=== PATIENT | female | born 1940 | race Asian ===

== ENCOUNTER 2016-12-03 12:29 | Emergency (ER) | payer OTHER, MEDICARE ==
[2016-12-03 12:43] VITALS: BP 141/64; PULSE 72; TEMP 97.6; BMI 28.3
[2016-12-03] MEDS ORDERED: IBUPROFEN 400 MG TABLET (FP) PO ONE ×2 (13:24→13:26)
--- NOTE | 2016-12-03 13:25 | PDOC ---
History of Present Illness - General Chief Complaint: Injury Stated Complaint: FALL Time Seen by Provider: 12/03/16 12:58 History Source: Patient, Family Exam Limitations: No Limitations - History of Present Illness Initial Comments: 12/03/16 13:25 While at [employer] office slid off rolling stool and struck the back of head on floor. There was no LOC, no drainage from nose or ears, but the patient is now complaining of tenderness and swelling to occiput and neck strain. Daughter who is with patient states mental status is been within normal limits, and it has no other injury. Occurred: reports: just prior to arrival, this morning Severity: reports: mild, moderate Pain Location: reports: head Modifying Factors: improves with: cold therapy Loss of Consciousness: no loss of consciousness Associated Symptoms (Fall): headache, neck pain Past History - Travel Traveled outside of the country in the last 30 days: No Close contact w/someone who was outside of country & ill: No - Past Medical History Allergies/Adverse Reactions: Allergies Allergy/AdvReac Type Severity Reaction Status Date / Time No Known Allergies Allergy Verified 12/03/16 12:42 Home Medications: Ambulatory Orders Atorvastatin Ca [Lipitor] 40 mg PO HS 12/03/16 Ibuprofen [Motrin -] 400 mg PO QID PRN #28 tablet 12/03/16 Ibuprofen [Motrin -] 600 mg PO QID 12/03/16 Asthma: Yes Diabetes: Yes HTN: Yes Other medical history: CARATACS - Surgical History Abdominal Surgery: Yes (ETOPIC, INGUINAL HERNIA) Cholecystectomy: Yes - Psycho/Social/Smoking Cessation Hx Suicidal Ideation: No Smoking History: Former smoker Have you smoked in the past 12 months: No Information on smoking cessation initiated: No Hx Alcohol Use: No Drug/Substance Use Hx: No Substance Use Type: None Trauma Specific PMHX - Complaint Specific PMHX Back Injury: No Neck Injury: Yes Review of Systems - Review of Systems Able to Perform ROS?: Yes Is the patient limited Greek proficient: Yes Constitutional: Yes: Symptoms Reported, See HPI Respiratory: No: Symptoms reported : No: Symptoms Reported Musculoskeletal: Yes: Symptoms Reported Neurological: Yes: Symptoms reported, See HPI, Headache. No: Numbness, Paresthesia All Other Systems: Reviewed and Negative *Physical Exam - Vital Signs Last Vital Signs Temp Pulse Resp BP Pulse Ox 97.6 F 72 18 141/64 98 12/03/16 12:40 12/03/16 12:40 12/03/16 12:40 12/03/16 12:40 12/03/16 12:40 - Physical Exam General Appearance: Yes: Nourished, Appropriately Dressed, Apparent Distress, Mild Distress, Moderate Distress HEENT: positive: CARLO, TMs Normal (no hemotympanum, no drainage from nose or ears). negative: Sinus Tenderness Neck: positive: Tender, Supple, Other (tender sternocleidomastoid muscles with reproduce tenderness at point of mastoid insertions. Has superficial contusion without crepitus or step-offs occiput) Respiratory/Chest: positive: Lungs Clear, Normal Breath Sounds Gastrointestinal/Abdominal: positive: Soft Extremity: positive: Normal Capillary Refill, Normal Inspection, Normal Range of Motion Integumentary: positive: Normal Color, Dry, Warm Neurologic: positive: rn patient care II-XII NML intact, Fully Oriented, Alert, Normal Mood/ Affect, Normal Response, Motor Strength 5/5 Progress Note - Progress Note Progress Note: CAT scan negative for fracture or bleed, no acute pathology. Discussed findings with Dr. juan. Encouraged to continue ice packs to contusion, ibuprofen for anti-inflammatory and pain relief, and provided one tablet of Valium 5 mg for antispasmodic purposes. Will follow-up with PMD Tuesday as needed *DC/Admit/Observation/Transfer Diagnosis at time of Disposition: Superficial injury of head Qualifiers: Encounter type: initial encounter Qualified Code(s): S00.90XA - Unspecified superficial injury of unspecified part of head, initial encounter - Discharge Dispostion Disposition: HOME Condition at time of disposition: Stable Admit: No - Patient Instructions Printed Discharge Instructions: DI for Closed Head Injury Additional Instructions: Rest, avoid strenuous activity or exercise for the next 24-48 hours May use ice on contusions as needed. hot soaks to neck spasms May use Tylenol or Motrin for pain relief may take 1/2valium once home and comfortable, for spasm- will make dizzy and sleepy. May take the other 1/2 = 2.5mg Valium in 8 hours if not resolved. Watch and seek evaluation for changes in behavior including crankiness, inconsolability, quietness/ sleepiness that is inappropriate, tiredness that is inappropriate, watch for worsening and changes of behavior. Seek immediate evaluation/return to emergency department for vomiting, mental status changes, pain that's out of proportion , bloody drainage from ears or nose. Followup with private physician as needed in one to 2 days for reevaluation
[2016-12-03] MEDS ORDERED: diazePAM 5 MG TABLET PO ONE (14:28)
[2016-12-03] MEDS ORDERED: diazePAM 5 MG TABLET ONE (14:32)
== END 2016-12-03 14:46 | disposition home or self-care (01) ==
LOC: JERFT 12:29
DX: S09.90XA Unspecified injury of head, initial encounter (principal); I10 Essential (primary) hypertension; J45.909 Unspecified asthma, uncomplicated; E11.9 Type 2 diabetes mellitus without complications; W07.XXXA Fall from chair, initial encounter; Y93.89 Activity, other specified; Y92.531 Health care provider office as the place of occurrence of the external cause; Z87.891 Personal history of nicotine dependence
CPT/HCPCS: 70450-TC; 99281-25

== ENCOUNTER 2016-12-15 06:28 | Day surgery (SDC) | payer OTHER, MEDICARE ==
[2016-12-14 15:18] VITALS: BMI 31.2
[~2016-12-15 06:28] MED LIST: CHONDROITIN SU A/HYALUR SOD 1 KIT IO ONE; LIDOCAINE HCL 1% PRESERVATIVE FREE - 30ML VIAL IO ONE; LIDOCAINE HCL 2% JELLY (5 ML/TUBE) TP ONE
[2016-12-15] MEDS ORDERED: TROPICAMIDE 1% OPHTH SOLN 15 ML BOTTLE ONE (06:49)
[2016-12-15] MEDS ORDERED: FLURBIPROFEN 0.03% OPHTH SOLN 2.5 ML BOTTLE ONE (06:49)
[2016-12-15] MEDS ORDERED: CYCLOPENTOLATE HCL 1% OPHTH SOLN 2 ML BOTTLE ONE (06:49)
[2016-12-15] MEDS ORDERED: CIPROFLOXACIN 0.3% EYE DROPS 5 ML BOTTLE ONE (06:49)
[2016-12-15] MEDS ORDERED: PHENYLEPHRINE 2.5% OPHTH SOLN 15 ML BOTTLE ONE (06:50)
[2016-12-15] MEDS: CIPROFLOXACIN HCL 0.3% OPHTH 2.5ML BOTTLE OP SCH ×3 (06:55→07:05)
[2016-12-15] MEDS: PHENYLEPHRINE 2.5% OPHTH SOLN 15 ML BOTTLE OP SCH ×3 (06:55→07:05)
[2016-12-15] MEDS: TROPICAMIDE 1% OPHTH SOLN 15 ML BOTTLE OP SCH ×3 (06:55→07:05)
[2016-12-15] MEDS: CYCLOPENTOLATE HCL 1% OPHTH SOLN 2 ML BOTTLE OP SCH ×3 (06:55→07:05)
[2016-12-15] MEDS: FLURBIPROFEN 0.03% OPHTH SOLN 2.5 ML BOTTLE OP SCH ×3 (06:55→07:05)
[2016-12-15 07:14] VITALS: TEMP 97.6
[2016-12-15] MEDS ORDERED: EPINEPHrine/PF 1 MG/1 ML (1:1,000) AMPULE ONE (07:21)
[2016-12-15] MEDS ORDERED: POVIDONE-IODINE 5% OPHTHALMIC PREP 30 ML SOLUTION ONE (07:22)
[2016-12-15] MEDS ORDERED: LIDOCAINE HCL 2% JELLY (5 ML/TUBE) ONE (07:22)
[2016-12-15] MEDS ORDERED: WATER FOR INJ,STERILE 10 ML ONE (07:22)
[2016-12-15] MEDS ORDERED: VANCOMYCIN 500 MG VIAL (RESTRICTED TO ID ONLY) ONE (07:22)
[2016-12-15] MEDS ORDERED: LIDOCAINE HCL 2% JELLY (5 ML/TUBE) TP ONE (07:45)
[2016-12-15] MEDS ORDERED: ACETAMINOPHEN 325 MG TABLET (FP) PO PRN (07:49)
[2016-12-15] MEDS ORDERED: LIDOCAINE HCL 1% PRESERVATIVE FREE - 30ML VIAL IO ONE (08:14)
[2016-12-15] MEDS ORDERED: CHONDROITIN SU A/HYALUR SOD 1 KIT IO ONE (08:15)
--- NOTE | 2016-12-15 09:05 | SPEC ---
DATE OF OPERATION: DATE OF DICTATION: 12/15/2016 PREOPERATIVE DIAGNOSIS: Cataract, left eye. POSTOPERATIVE DIAGNOSIS: Cataract, left eye. OPERATION: Phacoemulsification with posterior chamber intraocular lens implantation, left eye. Lens used [id number], 19.5-diopter power, Serial No. [id number]. SURGEON: Beatrice Barrios MD ANESTHESIA: Topical MAC. COMPLICATIONS: None. PROCEDURE: The patient was brought to the operating room and correctly identified along with the operative site and the correct intraocular lens puri. The patient was then prepped and draped in the usual sterile fashion including 5% Betadine solution in the conjunctival sac and an eyelid drape. An eyelid speculum was then placed in the eye. A paracentesis port was created and approximately 0.5 mL of preservative-free lidocaine was then injected into the eye. Viscoelastic was then injected to inflate the anterior chamber. A temporal clear corneal wound was created. A continuous circular capsulorrhexis was performed. The nucleus was then hydrodissected with BSS and removed with phacoemulsification. The remaining cortical material was irrigated and aspirated. Viscoelastic was injected to inflate the capsular bag and the intraocular lens was then implanted into the capsular bag. The remaining Viscoelastic was irrigated and aspirated from the eye. The IOL was noted to be well centered and completely covered by the anterior capsulorrhexis. Topical vancomycin was placed and the eye patched and shielded. All wounds were tested and found to be watertight. No suture was placed. The eye was then shielded. The patient was then discharged from the operating room in stable condition. BEATRICE BARRIOS M.D. [id number]
[2016-12-15 10:30] VITALS: BP 143/73; PULSE 79
== END 2016-12-15 10:30 | disposition home or self-care (01) ==
LOC: JASU-SURG 06:28
PROVIDERS: ATTEND Ophthalmology
PROC: 08RK3JZ Replacement of Left Lens with Synthetic Substitute, Percutaneous Approach (ICD-10-PCS; principal; 2016-12-15 08:00)
DX: H26.9 Unspecified cataract (principal)

== ENCOUNTER 2017-01-12 06:36 | Day surgery (SDC) | payer OTHER, MEDICARE ==
[2017-01-11 15:59] VITALS: BMI 30.8
[~2017-01-12 06:36] MED LIST changes: +ACETAMINOPHEN 325 MG TABLET (FP) PO PRN; -CHONDROITIN SU A/HYALUR SOD 1 KIT IO ONE; -LIDOCAINE HCL 1% PRESERVATIVE FREE - 30ML VIAL IO ONE; -LIDOCAINE HCL 2% JELLY (5 ML/TUBE) TP ONE
[2017-01-12] MEDS ORDERED: FLURBIPROFEN 0.03% OPHTH SOLN 2.5 ML BOTTLE ONE (07:00)
[2017-01-12] MEDS ORDERED: PHENYLEPHRINE 2.5% OPHTH SOLN 15 ML BOTTLE ONE (07:01)
[2017-01-12] MEDS ORDERED: CYCLOPENTOLATE HCL 1% OPHTH SOLN 2 ML BOTTLE ONE (07:01)
[2017-01-12] MEDS ORDERED: TROPICAMIDE 1% OPHTH SOLN 15 ML BOTTLE ONE (07:01)
[2017-01-12] MEDS ORDERED: CIPROFLOXACIN 0.3% EYE DROPS 5 ML BOTTLE ONE (07:01)
[2017-01-12] MEDS: CIPROFLOXACIN HCL 0.3% OPHTH 2.5ML BOTTLE OP SCH ×2 (07:23→07:31)
[2017-01-12] MEDS: CYCLOPENTOLATE HCL 1% OPHTH SOLN 2 ML BOTTLE OP SCH ×2 (07:23→07:31)
[2017-01-12] MEDS: PHENYLEPHRINE 2.5% OPHTH SOLN 15 ML BOTTLE OP SCH ×2 (07:24→07:31)
[2017-01-12] MEDS: TROPICAMIDE 1% OPHTH SOLN 15 ML BOTTLE OP SCH ×2 (07:24→07:31)
[2017-01-12] MEDS: FLURBIPROFEN 0.03% OPHTH SOLN 2.5 ML BOTTLE OP SCH ×2 (07:24→07:31)
[2017-01-12] MEDS ORDERED: WATER FOR INJ,STERILE 10 ML ONE ×2 (07:41→07:58)
[2017-01-12] MEDS ORDERED: LIDOCAINE HCL/PF 1% SDV 5ML VIAL ONE (07:41)
[2017-01-12] MEDS ORDERED: LIDOCAINE HCL 2% JELLY (5 ML/TUBE) ONE (07:41)
[2017-01-12] MEDS ORDERED: POVIDONE-IODINE 5% OPHTHALMIC PREP 30 ML SOLUTION ONE (07:42)
[2017-01-12] MEDS ORDERED: LIDOCAINE HCL 2% JELLY (5 ML/TUBE) TP ONE (07:50)
[2017-01-12] MEDS ORDERED: VANCOMYCIN 1,000 MG VIAL (RESTRICTED TO ID ONLY) ONE (07:56)
[2017-01-12] MEDS ORDERED: EPINEPHrine/PF 1 MG/1 ML (1:1,000) AMPULE ONE (07:56)
[2017-01-12] MEDS ORDERED: MIDAZOLAM HCL 2 MG/2 ML SINGLE DOSE VIAL ONE (08:08)
[2017-01-12] MEDS ORDERED: POVIDONE-IODINE 5% OPHTHALMIC PREP 30 ML SOLUTION OD ONE (08:12)
[2017-01-12] MEDS ORDERED: BSS (NA/CA/MG/K) BALANCED SALT SOLUTION OPHTH SOLN 15 ML BOTTLE OD ONE (08:24)
[2017-01-12] MEDS ORDERED: LIDOCAINE HCL 1% PRESERVATIVE FREE - 30ML VIAL IO ONE (08:24)
[2017-01-12] MEDS ORDERED: CHONDROITIN SU A/HYALUR SOD 1 KIT IO ONE (08:24)
[2017-01-12] MEDS ORDERED: EPINEPHrine/PF 1 MG/1 ML (1:1,000) AMPULE IO ONE (08:31)
--- NOTE | 2017-01-12 09:23 | SPEC ---
DATE OF SURGERY: 01/12/2017 OPERATION: Phacoemulsification with posterior chamber intraocular lens implantation, right eye. Lens used [id number], 20.5 Diopter power, Serial No. [id number]. PREOPERATIVE DIAGNOSIS: Cataract, right eye. POSTOPERATIVE DIAGNOSIS: Cataract, right eye. SURGEON: Beatrice Barrios M.D. ANESTHESIA: Topical MAC. COMPLICATIONS: None. PROCEDURE: The patient was brought to the operating room and correctly identified along with the operative site and the correct intraocular lens puri. The patient was then prepped and draped in the usual sterile fashion including 5% Betadine solution in the conjunctival sac and an eyelid drape. An eyelid speculum was then placed in the eye. A paracentesis port was created and approximately 0.5 mL of preservative free Lidocaine was then injected into the eye. Viscoelastic was then injected to inflate the anterior chamber. A temporal clear corneal wound was created. A continuous circular capsulorrhexis was performed. The nucleus was then hydrodissected with BSS and removed with phacoemulsification. The remaining cortical material was irrigated and aspirated. Viscoelastic was injected to inflate the capsular bag and the intraocular lens was then implanted into the capsular bag. The remaining Viscoelastic was irrigated and aspirated from the eye. The IOL was noted to be well centered and completely covered by the anterior capsulorrhexis. Topical vancomycin was placed and the eye patched and shielded. All wounds were tested and found to be watertight. No suture was placed. The eye was then shielded. The patient was then discharged from the operating room in stable condition. BEATRICE BARRIOS M.D. [id number]
[2017-01-12 10:54] VITALS: BP 112/70; PULSE 70; TEMP 98
== END 2017-01-12 10:00 | disposition home or self-care (01) ==
LOC: JASU-SURG 06:36
PROVIDERS: ATTEND Ophthalmology
PROC: 08RJ3JZ Replacement of Right Lens with Synthetic Substitute, Percutaneous Approach (ICD-10-PCS; principal; 2017-01-12 08:00)
DX: H26.9 Unspecified cataract (principal)

== ENCOUNTER 2020-06-23 19:16 | Emergency (ER) | payer OTHER, MEDICARE ==
[2020-06-23 19:26] VITALS: BMI 26.2
[2020-06-23] MEDS ORDERED: BAMLANIVIMAB 700 MG in SODIUM CHLORIDE 250 ML IVPB ONE (20:28)
[2020-06-23 21:24] LABS: HEMATOCRIT 34.3 % (32.4-45.2); HEMOGLOBIN 11.2 GM/dL (10.7-15.3); MCHC 32.5 g/dl (32.0-36.0); MEAN CELL VOLUME 92.3 fl (80-96); MEAN PLT VOLUME 8.9 fl (7.5-11.1); PLATELET COUNT 218 K/MM3 (134-434); RBC 3.72 M/mm3 (3.60-5.2); RDW 14.1 % (11.6-15.6); WHITE BLOOD COUNT 5.3 K/mm3 (4.0-10.0)
[2020-06-23 21:43] LABS: POTASSIUM 4.3 mmol/L (3.5-5.1)
[2020-06-23 21:45] LABS: BLOOD UREA NITROGEN 26.4 mg/dL (7-18); CALCIUM 8.9 mg/dL (8.5-10.1)
[2020-06-23 21:48] LABS: CREATININE 1.8 mg/dL (0.55-1.3)
[2020-06-23 22:52] VITALS: BP 120/87; PULSE 78; TEMP 97.6
== END 2020-06-23 23:20 | disposition home or self-care (01) ==
LOC: JER 19:16
DX: U07.1 COVID-19 (principal)
CPT/HCPCS: 36415; 71046-TC-FY; 80048; 82962; 85027; 93005; 93010; 99285-25; M0239; Q0239

== ENCOUNTER 2023-02-16 18:52 | Emergency (ER) | payer OTHER, MEDICARE ==
[2023-02-16 19:05] VITALS: RESP 16; BMI 25.4
[2023-02-16] MEDS ORDERED: ACETAMINOPHEN 1000 MG/100 ML BAG IVPB ONE (20:29)
[2023-02-16] MEDS ORDERED: ACETAMINOPHEN INJECTION 100 ML IVPB ONE (20:50)
[2023-02-16 20:52] LABS: BASO % 0.8 % (0-2.0); EOS % 3.2 % (0-4.5); HEMATOCRIT 31.9 % (32.4-45.2); HEMOGLOBIN 10.6 GM/dL (10.7-15.3); LYMPH % 26.3 % (8-40); MCH 30.7 pg (25.7-33.7); MCHC 33.2 g/dl (32.0-36.0); MEAN CELL VOLUME 92.6 fl (80-96); MEAN PLT VOLUME 7.8 fl (7.5-11.1); MONO % 9.2 % (3.8-10.2); NEUT % 60.5 % (42.8-82.8); PLATELET COUNT 291 10^3/uL (134-434); RBC 3.45 M/mm3 (3.60-5.2); RDW 13.7 % (11.6-15.6); WHITE BLOOD COUNT 6.1 K/mm3 (4.0-10.0)
[2023-02-16 20:56] LABS: EPI CELLS 12 /uL (0-25.1); HYALINE CASTS 0 /uL (0-3.1); PH,URINE 5.5 (5.0-8.0); URINE APPEARANCE CLEAR; URINE BACTERIA 1009 /uL (0-1359); URINE BILIRUBIN NEGATIVE (NEGATIVE); URINE COLOR YELLOW; URINE GLUCOSE (UA) NEGATIVE (NEGATIVE); URINE KETONE NEGATIVE (NEGATIVE); URINE LEUK ESTERASE 2+ (NEGATIVE); URINE NITRITE NEGATIVE (NEGATIVE); URINE PROTEIN 2+ (NEGATIVE); URINE UROBILINOGEN 0.2 mg/dL (0.2-1.0); URINE WBC 176 /uL (0-25.8)
[2023-02-16 20:58] LABS: URINE RBC 100.1 /uL (0-23.9)
[2023-02-16 21:22] LABS: PROTHROMBIN TIME (PATIENT) 11.6 SEC (9.7-13.0)
[2023-02-16 21:25] LABS: ACTIVATED PTT 34.2 SECONDS (25.2-36.5)
[2023-02-16 21:27] LABS: POTASSIUM 4.7 mmol/L (3.5-5.1)
[2023-02-16 21:31] LABS: ALBUMIN 3.3 g/dl (3.4-5.0); BLOOD UREA NITROGEN 29.5 mg/dL (7-18); CALCIUM 8.3 mg/dL (8.5-10.1)
[2023-02-16 21:35] LABS: CREATININE 2.2 mg/dL (0.55-1.3)
[2023-02-16 21:37] LABS: BILIRUBIN,TOTAL 0.2 mg/dL (0.2-1); TOT PROT 7.3 g/dl (6.4-8.2)
[2023-02-16] MEDS ORDERED: KETOROLAC TROMETHAMINE 15 MG/ML VIAL IVPUSH ONE (22:19)
[2023-02-16] MEDS ORDERED: LIDOCAINE 5% TOPICAL PATCH TP ONE (22:20)
[2023-02-16] MEDS ORDERED: KETOROLAC TROMETHAMINE 15 MG/ML VIAL ONE (22:35)
[2023-02-16] MEDS ORDERED: LIDOCAINE 4% PATCH TP ONE (22:35)
[2023-02-16] MEDS ORDERED: CEFTRIAXONE 1 GM/50 ML BAG ONE (22:36)
[2023-02-17 01:57] VITALS: BP 148/64; PULSE 70; TEMP 97.9
[2023-02-17] MEDS ORDERED: LIDOCAINE PATCH REMOVAL MC ONE (22:00)
== END 2023-02-17 01:58 | disposition home or self-care (01) ==
LOC: JER 18:52
PROC: 3E033NZ Introduction of Analgesics, Hypnotics, Sedatives into Peripheral Vein, Percutaneous Approach (ICD-10-PCS; principal; 2023-02-16)
PROC: 3E033GC Introduction of Other Therapeutic Substance into Peripheral Vein, Percutaneous Approach (ICD-10-PCS; 2023-02-16)
PROC: 3E033GC Introduction of Other Therapeutic Substance into Peripheral Vein, Percutaneous Approach (ICD-10-PCS; 2023-02-16)
DX: S39.012A Strain of muscle, fascia and tendon of lower back, initial encounter (principal); N39.0 Urinary tract infection, site not specified; X50.0XXA Overexertion from strenuous movement or load, initial encounter
CPT/HCPCS: 0241U-QW; 36415; 71045-TC-FY; 72100-TC-FY; 72131-TC; 74176-TC; 80053; 81003; 84484; 85025; 85610; 85730; 87040; 87086; 87186; 93005; 93010; 99285-25

== ENCOUNTER 2023-02-26 20:31 | Inpatient (IN) | payer OTHER, MEDICARE ==
[2023-02-26] MEDS ORDERED: SODIUM CHLORIDE 1,000 ML IV SCH (20:45)
[2023-02-26 21:16] LABS: BASO % 0.6 % (0-2.0); EOS % 1.3 % (0-4.5); HEMATOCRIT 30.6 % (32.4-45.2); HEMOGLOBIN 10.3 GM/dL (10.7-15.3); LYMPH % 18.4 % (8-40); MCH 31.1 pg (25.7-33.7); MCHC 33.6 g/dl (32.0-36.0); MEAN CELL VOLUME 92.6 fl (80-96); MEAN PLT VOLUME 7.3 fl (7.5-11.1); MONO % 10.2 % (3.8-10.2); NEUT % 69.5 % (42.8-82.8); PLATELET COUNT 387 10^3/uL (134-434); RBC 3.31 M/mm3 (3.60-5.2); VENOUS BASE EXCESS -5.8 mmol/L (-2-2); VENOUS O2 SATURATION 30.3 % (70-80); VENOUS PCO2 46.5 mmHg (38-52); VENOUS PH 7.271 (7.310-7.410); WHITE BLOOD COUNT 7.6 K/mm3 (4.0-10.0)
[2023-02-26 21:23] LABS: INR 1.07 (0.83-1.09); PROTHROMBIN TIME (PATIENT) 12.4 SEC (9.7-13.0)
[2023-02-26 21:26] LABS: ACTIVATED PTT 33.1 SECONDS (25.2-36.5)
[2023-02-26 21:49] LABS: POTASSIUM 5.5 mmol/L (3.5-5.1)
[2023-02-26 21:51] LABS: ALBUMIN 2.9 g/dl (3.4-5.0); CALCIUM 8.2 mg/dL (8.5-10.1)
[2023-02-26 21:52] LABS: BLOOD UREA NITROGEN 24.1 mg/dL (7-18)
[2023-02-26 21:55] LABS: CREATININE 2.2 mg/dL (0.55-1.3)
[2023-02-26 21:56] LABS: TOT PROT 6.9 g/dl (6.4-8.2)
[2023-02-26 21:57] LABS: BILIRUBIN,TOTAL 0.4 mg/dL (0.2-1)
[2023-02-26] MEDS ORDERED: SODIUM ZIRCONIUM CYCLOSILICATE (LOKELMA) 5 GM PACKET ONE (22:29)
[2023-02-26] MEDS: SODIUM ZIRCONIUM CYCLOSILICATE (LOKELMA) 5 GM PACKET PO SCH (22:36)
[2023-02-26] MEDS ORDERED: AMOX TR/POT CLAV 875MG/125MG TABLETS (FP) PO ONE (23:15)
[2023-02-26] MEDS ORDERED: ZOLPIDEM TARTRATE 5 MG TABLET PO ONE (23:54)
[2023-02-27] MEDS ORDERED: ZOLPIDEM TARTRATE 5 MG TABLET ONE (01:01)
[2023-02-27] MEDS ORDERED: AMOX TR/POT CLAV 875MG/125MG TABLETS (FP) ONE (01:01)
[2023-02-27 04:11] LABS: EPI CELLS 2 /uL (0-25.1); HYALINE CASTS 0 /uL (0-3.1); URINE APPEARANCE CLEAR; URINE BACTERIA 14 /uL (0-1359); URINE BILIRUBIN NEGATIVE (NEGATIVE); URINE COLOR YELLOW; URINE GLUCOSE (UA) NEGATIVE (NEGATIVE); URINE KETONE NEGATIVE (NEGATIVE); URINE LEUK ESTERASE NEGATIVE (NEGATIVE); URINE NITRITE NEGATIVE (NEGATIVE); URINE PROTEIN 1+ (NEGATIVE); URINE RBC 5 /uL (0-23.9); URINE UROBILINOGEN 0.2 mg/dL (0.2-1.0); URINE WBC 4 /uL (0-25.8)
[2023-02-27 04:25] LABS: URINE UREA NITROGEN 107 mg/dL (350-1000)
[2023-02-27 05:04] LABS: CREATININE, URINE RANDOM < 13.0 mg/dL (30-150)
[2023-02-27] MEDS ORDERED: GLIMEPIRIDE 4 MG TABLET PO SCH (07:00)
[2023-02-27] MEDS ORDERED: SODIUM CHLORIDE 1,000 ML IV SCH (07:00)
[2023-02-27] MEDS: INSULIN SLIDING SCALE (NOVOLOG) 1 VIAL SQ SCH ×4 (07:29→23:37)
[2023-02-27 07:54] LABS: BASO % 0.8 % (0-2.0); EOS % 2.7 % (0-4.5); HEMOGLOBIN 9.9 GM/dL (10.7-15.3); LYMPH % 23.4 % (8-40); MCH 31.1 pg (25.7-33.7); MCHC 33.1 g/dl (32.0-36.0); MEAN CELL VOLUME 93.9 fl (80-96); MONO % 13.4 % (3.8-10.2); NEUT % 59.7 % (42.8-82.8); PLATELET COUNT 371 10^3/uL (134-434); RBC 3.19 M/mm3 (3.60-5.2); RDW 13.8 % (11.6-15.6); WHITE BLOOD COUNT 7.4 K/mm3 (4.0-10.0)
[2023-02-27 08:18] LABS: CHLORIDE 113 mmol/L (98-107); POTASSIUM 4.9 mmol/L (3.5-5.1); SODIUM 140 mmol/L (136-145)
[2023-02-27 08:19] LABS: ANION GAP 6 MMOL/L (8-16); CALCIUM 8.2 mg/dL (8.5-10.1); CO2 21 mmol/L (21-32)
[2023-02-27 08:20] LABS: MAGNESIUM 1.6 mg/dL (1.8-2.4)
[2023-02-27 08:21] LABS: ALBUMIN 2.7 g/dl (3.4-5.0); BLOOD UREA NITROGEN 21.1 mg/dL (7-18)
[2023-02-27 08:23] LABS: SGOT/AST 16 U/L (15-37); SGPT/ALT 15 U/L (13-61)
[2023-02-27 08:25] LABS: CHOLESTEROL 108 mg/dL (50-200); PHOSPHOROUS 3.5 mg/dL (2.5-4.9); TOT PROT 6.2 g/dl (6.4-8.2)
[2023-02-27 08:27] LABS: BILIRUBIN,TOTAL 0.3 mg/dL (0.2-1); LDL CHOLESTEROL (ONLY SJRH) 39 mg/dL (5-100)
[2023-02-27 08:28] LABS: ALK PHOS 84 U/L (45-117); HDL CHOLESTEROL 61 mg/dL (40-60)
[2023-02-27 08:32] LABS: GLUCOSE,RANDOM 36 mg/dL (74-106)
[2023-02-27] MEDS ORDERED: SODIUM ZIRCONIUM CYCLOSILICATE (LOKELMA) 5 GM PACKET ONE (09:22)
[2023-02-27] MEDS ORDERED: ASPIRIN 81 MG CHEWABLE TABLETS ONE (09:22)
[2023-02-27] MEDS ORDERED: PANTOPRAZOLE 20 MG TABLET PO ONE (09:22)
[2023-02-27] MEDS ORDERED: GABAPENTIN 300 MG CAPSULE ONE (09:22)
[2023-02-27] MEDS ORDERED: HEPARIN NA (PORCINE) 5,000 UNITS/ML 1ML VIAL ONE (09:23)
[2023-02-27] MEDS ORDERED: CEFTRIAXONE 1 GM/50 ML BAG ONE (09:23)
[2023-02-27] MEDS: DEXTROSE 5%-0.45% SALINE 1,000 ML IV SCH (09:30)
[2023-02-27] MEDS: ASPIRIN 81 MG CHEWABLE TABLETS PO SCH (09:30)
[2023-02-27] MEDS: HEPARIN NA (PORCINE) 5,000 UNITS/ML 1ML VIAL SQ SCH ×2 (09:30→23:05)
[2023-02-27] MEDS: PANTOPRAZOLE 20 MG TABLET PO SCH (09:31)
[2023-02-27] MEDS: GABAPENTIN 300 MG CAPSULE PO SCH ×2 (09:31→23:05)
[2023-02-27] MEDS: CEFTRIAXONE 1 GM in DEXTROSE 5%-WATER - 50 ML IVPB SCH (09:31)
[2023-02-27] MEDS: SODIUM ZIRCONIUM CYCLOSILICATE (LOKELMA) 5 GM PACKET PO SCH (09:31)
[2023-02-27] MEDS ORDERED: DEXTROSE 50%-WATER 25 GM/50 ML DISP.SYRIN ONE (13:22)
[2023-02-27] MEDS ORDERED: amLODIPine BESYLATE 5 MG TABLET (FP) PO ONE (13:37)
[2023-02-27] MEDS ORDERED: DEXTROSE 50%-WATER 25 GM/50 ML DISP.SYRIN IVPUSH ONE (15:03)
[2023-02-27] MEDS ORDERED: DEXTROSE 50%-WATER - 25 GM/50 ML VIAL IVPUSH PRN (15:04)
[2023-02-27] MEDS: ATORVASTATIN CA 40 MG TABLET (FP) PO SCH (23:05)
[2023-02-28] MEDS ORDERED: ATORVASTATIN CA 40 MG TABLET (FP) ONE (00:14)
[2023-02-28] MEDS ORDERED: HEPARIN NA (PORCINE) 5,000 UNITS/ML 1ML VIAL ONE ×2 (00:15→08:58)
[2023-02-28] MEDS ORDERED: GABAPENTIN 300 MG CAPSULE ONE ×2 (00:15→08:58)
[2023-02-28] MEDS ORDERED: ZOLPIDEM TARTRATE 5 MG TABLET PO ONE (01:34)
[2023-02-28] MEDS: INSULIN SLIDING SCALE (NOVOLOG) 1 VIAL SQ SCH ×4 (07:33→23:04)
[2023-02-28 08:22] LABS: BASO % 1.1 % (0-2.0); EOS % 5.4 % (0-4.5); HEMATOCRIT 30.6 % (32.4-45.2); LYMPH % 20.4 % (8-40); MCH 30.9 pg (25.7-33.7); MCHC 32.8 g/dl (32.0-36.0); MEAN CELL VOLUME 94.2 fl (80-96); MEAN PLT VOLUME 7.7 fl (7.5-11.1); MONO % 12.2 % (3.8-10.2); NEUT % 60.9 % (42.8-82.8); PLATELET COUNT 327 10^3/uL (134-434); RBC 3.25 M/mm3 (3.60-5.2); RDW 13.5 % (11.6-15.6); WHITE BLOOD COUNT 7.3 K/mm3 (4.0-10.0)
[2023-02-28] MEDS: DEXTROSE 5%-0.45% SALINE 1,000 ML IV SCH (08:45)
[2023-02-28 08:46] LABS: POTASSIUM 5.4 mmol/L (3.5-5.1)
[2023-02-28 08:48] LABS: ALBUMIN 2.4 g/dl (3.4-5.0); BLOOD UREA NITROGEN 23.6 mg/dL (7-18); CALCIUM 7.9 mg/dL (8.5-10.1)
[2023-02-28 08:51] LABS: CREATININE 2.2 mg/dL (0.55-1.3)
[2023-02-28 08:53] LABS: BILIRUBIN,TOTAL 0.2 mg/dL (0.2-1)
[2023-02-28] MEDS ORDERED: PANTOPRAZOLE 20 MG TABLET PO ONE (08:57)
[2023-02-28] MEDS ORDERED: CEFTRIAXONE 1 GM/50 ML BAG ONE (08:58)
[2023-02-28] MEDS ORDERED: ASPIRIN 81 MG CHEWABLE TABLETS ONE (08:58)
[2023-02-28] MEDS ORDERED: SODIUM ZIRCONIUM CYCLOSILICATE (LOKELMA) 5 GM PACKET ONE (08:58)
[2023-02-28] MEDS: GABAPENTIN 300 MG CAPSULE PO SCH ×2 (09:16→23:04)
[2023-02-28] MEDS: HEPARIN NA (PORCINE) 5,000 UNITS/ML 1ML VIAL SQ SCH ×2 (09:16→23:00)
[2023-02-28] MEDS: ASPIRIN 81 MG CHEWABLE TABLETS PO SCH (09:16)
[2023-02-28] MEDS: SODIUM ZIRCONIUM CYCLOSILICATE (LOKELMA) 5 GM PACKET PO SCH (09:16)
[2023-02-28] MEDS: CEFTRIAXONE 1 GM in DEXTROSE 5%-WATER - 50 ML IVPB SCH (09:17)
[2023-02-28] MEDS: PANTOPRAZOLE 20 MG TABLET PO SCH (09:17)
[2023-02-28] MEDS ORDERED: FLU VACCINE (FLULAVAL) PF 60 MCG/0.5 ML SYRINGE 2023-2024 IM ONE (17:30)
[2023-02-28 18:52] VITALS: BMI 23.8
[2023-02-28] MEDS: ATORVASTATIN CA 40 MG TABLET (FP) PO SCH (23:03)
[2023-03-01] MEDS: INSULIN SLIDING SCALE (NOVOLOG) 1 VIAL SQ SCH ×4 (06:51→21:52)
[2023-03-01] MEDS: ASPIRIN 81 MG CHEWABLE TABLETS PO SCH (12:08)
[2023-03-01] MEDS: HEPARIN NA (PORCINE) 5,000 UNITS/ML 1ML VIAL SQ SCH ×2 (12:08→21:51)
[2023-03-01] MEDS: GABAPENTIN 300 MG CAPSULE PO SCH ×2 (12:10→21:51)
[2023-03-01] MEDS: SODIUM ZIRCONIUM CYCLOSILICATE (LOKELMA) 5 GM PACKET PO SCH (12:10)
[2023-03-01] MEDS: PANTOPRAZOLE 20 MG TABLET PO SCH (12:11)
[2023-03-01] MEDS: ATORVASTATIN CA 40 MG TABLET (FP) PO SCH (21:51)
[2023-03-02] MEDS: INSULIN SLIDING SCALE (NOVOLOG) 1 VIAL SQ SCH ×4 (06:13→22:57)
[2023-03-02 08:08] LABS: HEMATOCRIT 29.8 % (32.4-45.2); HEMOGLOBIN 10.1 GM/dL (10.7-15.3); MCH 31.4 pg (25.7-33.7); MCHC 33.8 g/dl (32.0-36.0); MEAN CELL VOLUME 92.7 fl (80-96); MEAN PLT VOLUME 8.5 fl (7.5-11.1); PLATELET COUNT 299 10^3/uL (134-434); RBC 3.21 M/mm3 (3.60-5.2); WHITE BLOOD COUNT 5.8 K/mm3 (4.0-10.0)
[2023-03-02 08:18] LABS: CHLORIDE 110 mmol/L (98-107); SODIUM 138 mmol/L (136-145)
[2023-03-02 08:26] LABS: BLOOD UREA NITROGEN 28.2 mg/dL (7-18); CALCIUM 7.9 mg/dL (8.5-10.1); CO2 23 mmol/L (21-32)
[2023-03-02 08:27] LABS: ALBUMIN 2.5 g/dl (3.4-5.0); GLUCOSE,RANDOM 114 mg/dL (74-106)
[2023-03-02 08:30] LABS: SGOT/AST 17 U/L (15-37); SGPT/ALT 16 U/L (13-61)
[2023-03-02 08:31] LABS: BILIRUBIN,TOTAL 0.2 mg/dL (0.2-1)
[2023-03-02 08:32] LABS: ALK PHOS 92 U/L (45-117)
[2023-03-02 09:04] LABS: ANION GAP 5 mmol/L (4-13); POTASSIUM 6.5 mmol/L (3.5-5.1)
[2023-03-02] MEDS: ASPIRIN 81 MG CHEWABLE TABLETS PO SCH (09:17)
[2023-03-02] MEDS: GABAPENTIN 300 MG CAPSULE PO SCH ×2 (09:18→23:05)
[2023-03-02] MEDS: SODIUM ZIRCONIUM CYCLOSILICATE (LOKELMA) 5 GM PACKET PO SCH ×3 (09:18→22:58)
[2023-03-02] MEDS: PANTOPRAZOLE 20 MG TABLET PO SCH (09:18)
[2023-03-02] MEDS: HEPARIN NA (PORCINE) 5,000 UNITS/ML 1ML VIAL SQ SCH ×2 (09:18→22:57)
[2023-03-02] MEDS ORDERED: SODIUM CHLORIDE 0.45% 1,000 ML IV SCH (12:15)
[2023-03-02] MEDS: ALBUTEROL SO4 0.083% IH SOL 2.5 MG/3 ML VIAL.NEB. NEB SCH ×2 (13:00)
[2023-03-02] MEDS ORDERED: SODIUM BICARBONATE 8.4% 50 MEQ/50 ML DISP.SYRIN IVPUSH ONE (13:00)
[2023-03-02] MEDS ORDERED: CALCIUM GLUCONATE 10% - 1,000 MG/10 ML VIAL IVPUSH ONE (13:00)
[2023-03-02] MEDS ORDERED: DEXTROSE 50%-WATER 25 GM/50 ML DISP.SYRIN IVPUSH ONE (13:00)
[2023-03-02] MEDS ORDERED: INSULIN REGULAR HUMAN 100 UNITS/ML *VIAL IVPUSH ONE ×2 (13:00→18:00)
[2023-03-02 16:28] LABS: CALCIUM 8.1 mg/dL (8.5-10.1)
[2023-03-02 16:29] LABS: BLOOD UREA NITROGEN 29.1 mg/dL (7-18)
[2023-03-02 16:32] LABS: CREATININE 3.3 mg/dL (0.55-1.3)
[2023-03-02] MEDS ORDERED: ALBUTEROL SO4 0.083% IH SOL 2.5 MG/3 ML VIAL.NEB. NEB ONE ×2 (17:45→20:29)
[2023-03-02] MEDS ORDERED: DEXTROSE 50%-WATER - 25 GM/50 ML VIAL IVPUSH ONE (17:45)
[2023-03-02] MEDS ORDERED: CALCIUM GLUCONATE 10% - 1,000 MG/10 ML VIAL IVPB ONE (18:00)
[2023-03-02] MEDS ORDERED: DEXTROSE 50%-WATER 25 GM/50 ML DISP.SYRIN ONE (19:47)
[2023-03-02] MEDS: ATORVASTATIN CA 40 MG TABLET (FP) PO SCH (22:57)
[2023-03-03] MEDS: MELATONIN 5 MG TABLETS PO PRN (00:55)
[2023-03-03] MEDS ORDERED: MINERAL OIL ENEMA 133 ML ENEMA RC ONE (02:00)
[2023-03-03 02:05] LABS: CHLORIDE 104 mmol/L (98-107); POTASSIUM 4.4 mmol/L (3.5-5.1); SODIUM 132 mmol/L (136-145)
[2023-03-03 02:07] LABS: ANION GAP 8 mmol/L (4-13); CO2 20 mmol/L (21-32)
[2023-03-03 02:08] LABS: BLOOD UREA NITROGEN 26.4 mg/dL (7-18); GLUCOSE,RANDOM 175 mg/dL (74-106)
[2023-03-03 02:11] LABS: CREATININE 2.5 mg/dL (0.55-1.3); SGOT/AST 18 U/L (15-37); SGPT/ALT 14 U/L (13-61)
[2023-03-03 02:12] LABS: BILIRUBIN,TOTAL 0.2 mg/dL (0.2-1)
[2023-03-03 02:13] LABS: ALK PHOS 74 U/L (45-117)
[2023-03-03 02:18] LABS: CALCIUM 6.5 mg/dL (8.5-10.1)
[2023-03-03] MEDS: INSULIN SLIDING SCALE (NOVOLOG) 1 VIAL SQ SCH ×4 (06:24→22:11)
[2023-03-03] MEDS ORDERED: SODIUM CHLORIDE 1,000 ML IV SCH (08:15)
[2023-03-03 08:27] LABS: HEMATOCRIT 26.9 % (32.4-45.2); HEMOGLOBIN 8.9 GM/dL (10.7-15.3); MCH 31.4 pg (25.7-33.7); MEAN PLT VOLUME 8.7 fl (7.5-11.1); PLATELET COUNT 250 10^3/uL (134-434); RBC 2.83 M/mm3 (3.60-5.2); RDW 13.7 % (11.6-15.6); WHITE BLOOD COUNT 7.5 K/mm3 (4.0-10.0)
[2023-03-03 08:33] LABS: POTASSIUM 5.8 mmol/L (3.5-5.1)
[2023-03-03 08:36] LABS: CALCIUM 7.7 mg/dL (8.5-10.1)
[2023-03-03 08:40] LABS: CREATININE 3.1 mg/dL (0.55-1.3)
[2023-03-03] MEDS: ASPIRIN 81 MG CHEWABLE TABLETS PO SCH (09:24)
[2023-03-03] MEDS: HEPARIN NA (PORCINE) 5,000 UNITS/ML 1ML VIAL SQ SCH ×2 (09:24→22:11)
[2023-03-03] MEDS: SODIUM ZIRCONIUM CYCLOSILICATE (LOKELMA) 5 GM PACKET PO SCH ×2 (09:24→22:12)
[2023-03-03] MEDS: PANTOPRAZOLE 20 MG TABLET PO SCH (09:24)
[2023-03-03] MEDS: GABAPENTIN 300 MG CAPSULE PO SCH ×2 (09:24→22:12)
[2023-03-03] MEDS ORDERED: DEXTROSE 50%-WATER - 25 GM/50 ML VIAL IVPUSH ONE ×2 (09:59→13:00)
[2023-03-03] MEDS ORDERED: CALCIUM GLUCONATE 10% - 1,000 MG/10 ML VIAL IVPB ONE ×2 (09:59→13:00)
[2023-03-03] MEDS ORDERED: ALBUTEROL SO4 0.083% IH SOL 2.5 MG/3 ML VIAL.NEB. NEB ONE (09:59)
[2023-03-03] MEDS ORDERED: INSULIN REGULAR HUMAN 100 UNITS/ML *VIAL SQ ONE (11:00)
[2023-03-03] MEDS ORDERED: DEXTROSE 50%-WATER 25 GM/50 ML DISP.SYRIN IVPUSH PRN (13:07)
[2023-03-03] MEDS ORDERED: DEXTROSE 50%-WATER 25 GM/50 ML DISP.SYRIN IVPUSH ONE (13:15)
[2023-03-03] MEDS ORDERED: SODIUM CHLORIDE 0.45% 1,000 ML IV SCH (13:30)
[2023-03-03 16:26] LABS: POTASSIUM 4.9 mmol/L (3.5-5.1)
[2023-03-03 16:28] LABS: BLOOD UREA NITROGEN 29.2 mg/dL (7-18)
[2023-03-03 16:31] LABS: CREATININE 3.1 mg/dL (0.55-1.3)
[2023-03-03 16:46] LABS: CALCIUM 7.5 mg/dL (8.5-10.1)
[2023-03-03] MEDS: POLYETHYLENE GLYCOL (HEALTHYLAX) 3350 17 GM PACKET PO SCH (17:20)
[2023-03-03] MEDS: SENNOSIDES 8.8 MG/5 ML SYRUP PO SCH (22:11)
[2023-03-03] MEDS: ATORVASTATIN CA 40 MG TABLET (FP) PO SCH (22:12)
[2023-03-04] MEDS: INSULIN SLIDING SCALE (NOVOLOG) 1 VIAL SQ SCH ×4 (06:14→21:23)
[2023-03-04] MEDS: GLIMEPIRIDE 1 MG TABLET PO SCH (06:14)
[2023-03-04] MEDS: PANTOPRAZOLE 20 MG TABLET PO SCH (09:49)
[2023-03-04] MEDS: GABAPENTIN 300 MG CAPSULE PO SCH ×2 (09:49→21:21)
[2023-03-04] MEDS: SODIUM ZIRCONIUM CYCLOSILICATE (LOKELMA) 5 GM PACKET PO SCH ×2 (09:49→21:24)
[2023-03-04] MEDS: ASPIRIN 81 MG CHEWABLE TABLETS PO SCH (09:49)
[2023-03-04] MEDS: HEPARIN NA (PORCINE) 5,000 UNITS/ML 1ML VIAL SQ SCH (09:50)
[2023-03-04] MEDS: POLYETHYLENE GLYCOL (HEALTHYLAX) 3350 17 GM PACKET PO SCH (09:50)
[2023-03-04 09:51] LABS: HEMATOCRIT 27.6 % (32.4-45.2); HEMOGLOBIN 9.4 GM/dL (10.7-15.3); MCH 31.8 pg (25.7-33.7); MCHC 33.9 g/dl (32.0-36.0); MEAN CELL VOLUME 93.9 fl (80-96); MEAN PLT VOLUME 8.7 fl (7.5-11.1); PLATELET COUNT 273 10^3/uL (134-434); RBC 2.94 M/mm3 (3.60-5.2); RDW 14.3 % (11.6-15.6); WHITE BLOOD COUNT 7.7 K/mm3 (4.0-10.0)
[2023-03-04 10:03] LABS: POTASSIUM 5.2 mmol/L (3.5-5.1)
[2023-03-04 10:09] LABS: ALBUMIN 2.4 g/dl (3.4-5.0); BLOOD UREA NITROGEN 28.4 mg/dL (7-18); CALCIUM 7.7 mg/dL (8.5-10.1)
[2023-03-04 10:12] LABS: CREATININE 3.1 mg/dL (0.55-1.3)
[2023-03-04 10:14] LABS: BILIRUBIN,TOTAL 0.2 mg/dL (0.2-1); TOT PROT 5.8 g/dl (6.4-8.2)
[2023-03-04] MEDS ORDERED: SODIUM CHLORIDE 0.45% 1,000 ML IV SCH (12:45)
[2023-03-04] MEDS ORDERED: FUROSEMIDE 40 MG/4 ML INJECTABLE VIAL IVPUSH ONE (16:00)
[2023-03-04] MEDS: SENNOSIDES 8.8 MG/5 ML SYRUP PO SCH (21:21)
[2023-03-04] MEDS: ATORVASTATIN CA 40 MG TABLET (FP) PO SCH (21:21)
[2023-03-05] MEDS: GLIMEPIRIDE 1 MG TABLET PO SCH (06:17)
[2023-03-05] MEDS: INSULIN SLIDING SCALE (NOVOLOG) 1 VIAL SQ SCH ×5 (06:17→21:43)
[2023-03-05 08:31] LABS: POTASSIUM 4.6 mmol/L (3.5-5.1)
[2023-03-05 08:33] LABS: CALCIUM 7.7 mg/dL (8.5-10.1)
[2023-03-05 08:34] LABS: ALBUMIN 2.2 g/dl (3.4-5.0); BLOOD UREA NITROGEN 33.4 mg/dL (7-18); HEMATOCRIT 25.9 % (32.4-45.2); HEMOGLOBIN 8.6 GM/dL (10.7-15.3); MCHC 33.1 g/dl (32.0-36.0); MEAN CELL VOLUME 93.7 fl (80-96); MEAN PLT VOLUME 8.3 fl (7.5-11.1); PLATELET COUNT 255 10^3/uL (134-434); RBC 2.76 M/mm3 (3.60-5.2); RDW 13.7 % (11.6-15.6); WHITE BLOOD COUNT 7.2 K/mm3 (4.0-10.0)
[2023-03-05 08:37] LABS: CREATININE 3.3 mg/dL (0.55-1.3)
[2023-03-05 08:39] LABS: BILIRUBIN,TOTAL 0.2 mg/dL (0.2-1); TOT PROT 5.4 g/dl (6.4-8.2)
[2023-03-05] MEDS: PANTOPRAZOLE 20 MG TABLET PO SCH (10:00)
[2023-03-05] MEDS: GABAPENTIN 300 MG CAPSULE PO SCH ×2 (10:00→21:43)
[2023-03-05] MEDS: SODIUM ZIRCONIUM CYCLOSILICATE (LOKELMA) 5 GM PACKET PO SCH (10:00)
[2023-03-05] MEDS: ASPIRIN 81 MG CHEWABLE TABLETS PO SCH (10:00)
[2023-03-05] MEDS: POLYETHYLENE GLYCOL (HEALTHYLAX) 3350 17 GM PACKET PO SCH ×2 (10:01→10:06)
[2023-03-05 19:00] LABS: RETICULOCYTES 0.79 % (0.5-1.5)
[2023-03-05] MEDS: ATORVASTATIN CA 40 MG TABLET (FP) PO SCH (21:43)
[2023-03-05] MEDS: SENNOSIDES 8.8 MG/5 ML SYRUP PO SCH (21:43)
[2023-03-06] MEDS: INSULIN SLIDING SCALE (NOVOLOG) 1 VIAL SQ SCH ×4 (06:24→22:46)
[2023-03-06] MEDS: GLIMEPIRIDE 1 MG TABLET PO SCH (06:44)
[2023-03-06 08:23] LABS: POTASSIUM 4.8 mmol/L (3.5-5.1)
[2023-03-06 08:29] LABS: ALBUMIN 2.2 g/dl (3.4-5.0); CALCIUM 7.6 mg/dL (8.5-10.1)
[2023-03-06 08:30] LABS: BLOOD UREA NITROGEN 41.1 mg/dL (7-18)
[2023-03-06 08:32] LABS: CREATININE 3.6 mg/dL (0.55-1.3)
[2023-03-06 08:34] LABS: BILIRUBIN,TOTAL 0.2 mg/dL (0.2-1); TOT PROT 5.2 g/dl (6.4-8.2)
[2023-03-06] MEDS: ASPIRIN 81 MG CHEWABLE TABLETS PO SCH (09:49)
[2023-03-06] MEDS: GABAPENTIN 300 MG CAPSULE PO SCH ×2 (09:49→22:42)
[2023-03-06] MEDS: SODIUM ZIRCONIUM CYCLOSILICATE (LOKELMA) 5 GM PACKET PO SCH (09:50)
[2023-03-06] MEDS: PANTOPRAZOLE 20 MG TABLET PO SCH (09:50)
[2023-03-06] MEDS: POLYETHYLENE GLYCOL (HEALTHYLAX) 3350 17 GM PACKET PO SCH (09:50)
[2023-03-06] MEDS ORDERED: amLODIPine BESYLATE 5 MG TABLET (FP) PO SCH (10:00)
[2023-03-06] MEDS: ATORVASTATIN CA 40 MG TABLET (FP) PO SCH (22:42)
[2023-03-06] MEDS: SENNOSIDES 8.8 MG/5 ML SYRUP PO SCH (23:04)
[2023-03-07] MEDS: INSULIN SLIDING SCALE (NOVOLOG) 1 VIAL SQ SCH ×3 (06:23→16:47)
[2023-03-07] MEDS: GLIMEPIRIDE 1 MG TABLET PO SCH (08:01)
[2023-03-07] MEDS: POLYETHYLENE GLYCOL (HEALTHYLAX) 3350 17 GM PACKET PO SCH (09:13)
[2023-03-07] MEDS: GABAPENTIN 300 MG CAPSULE PO SCH ×2 (09:13→21:44)
[2023-03-07] MEDS: ASPIRIN 81 MG CHEWABLE TABLETS PO SCH (09:13)
[2023-03-07] MEDS: SODIUM ZIRCONIUM CYCLOSILICATE (LOKELMA) 5 GM PACKET PO SCH (09:13)
[2023-03-07] MEDS: PANTOPRAZOLE 20 MG TABLET PO SCH (09:13)
[2023-03-07] MEDS ORDERED: FUROSEMIDE 40 MG TABLET (FP) PO ONE (15:12)
[2023-03-07] MEDS ORDERED: hydrALAZINE HCL 10 MG TABLET PO ONE (21:24)
[2023-03-07] MEDS ORDERED: hydrALAZINE HCL 25 MG TABLET (FP) PO ONE (21:24)
[2023-03-07] MEDS: HEPARIN NA (PORCINE) 5,000 UNITS/ML 1ML VIAL SQ SCH (21:44)
[2023-03-07] MEDS: SENNOSIDES 8.8 MG/5 ML SYRUP PO SCH (21:44)
[2023-03-07] MEDS: ATORVASTATIN CA 40 MG TABLET (FP) PO SCH (21:44)
[2023-03-07] MEDS: MELATONIN 5 MG TABLETS PO PRN (23:14)
[2023-03-08] MEDS: INSULIN SLIDING SCALE (NOVOLOG) 1 VIAL SQ SCH ×3 (06:32→16:59)
[2023-03-08 07:24] LABS: BASO % 0.7 % (0-2.0); EOS % 7.8 % (0-4.5); HEMATOCRIT 25.1 % (32.4-45.2); HEMOGLOBIN 8.1 GM/dL (10.7-15.3); LYMPH % 21.2 % (8-40); MCH 30.6 pg (25.7-33.7); MCHC 32.4 g/dl (32.0-36.0); MEAN CELL VOLUME 94.5 fl (80-96); MONO % 13.7 % (3.8-10.2); NEUT % 56.6 % (42.8-82.8); PLATELET COUNT 263 10^3/uL (134-434); RBC 2.66 M/mm3 (3.60-5.2); RDW 13.8 % (11.6-15.6); WHITE BLOOD COUNT 6.6 K/mm3 (4.0-10.0)
[2023-03-08 07:42] LABS: POTASSIUM 4.9 mmol/L (3.5-5.1)
[2023-03-08 07:45] LABS: CALCIUM 7.7 mg/dL (8.5-10.1)
[2023-03-08 07:46] LABS: BLOOD UREA NITROGEN 55.6 mg/dL (7-18); MAGNESIUM 1.6 mg/dL (1.8-2.4)
[2023-03-08 07:49] LABS: CREATININE 3.4 mg/dL (0.55-1.3); PHOSPHOROUS 4.7 mg/dL (2.5-4.9)
[2023-03-08] MEDS: ASPIRIN 81 MG CHEWABLE TABLETS PO SCH (09:13)
[2023-03-08] MEDS: PANTOPRAZOLE 20 MG TABLET PO SCH (09:14)
[2023-03-08] MEDS: GABAPENTIN 300 MG CAPSULE PO SCH ×2 (09:14→22:07)
[2023-03-08] MEDS: HEPARIN NA (PORCINE) 5,000 UNITS/ML 1ML VIAL SQ SCH ×2 (09:14→22:07)
[2023-03-08] MEDS: SODIUM ZIRCONIUM CYCLOSILICATE (LOKELMA) 5 GM PACKET PO SCH (09:14)
[2023-03-08] MEDS: POLYETHYLENE GLYCOL (HEALTHYLAX) 3350 17 GM PACKET PO SCH ×2 (09:14→09:20)
[2023-03-08] MEDS ORDERED: MAGNESIUM OXIDE 400 MG TABLET (FP) PO ONE (12:00)
[2023-03-08] MEDS: FUROSEMIDE 40 MG TABLET (FP) PO SCH (12:10)
[2023-03-08] MEDS: ATORVASTATIN CA 40 MG TABLET (FP) PO SCH (22:07)
[2023-03-08] MEDS: SENNOSIDES 8.8 MG/5 ML SYRUP PO SCH (22:07)
[2023-03-09] MEDS: INSULIN SLIDING SCALE (NOVOLOG) 1 VIAL SQ SCH ×3 (06:22→16:31)
[2023-03-09 08:16] LABS: HEMATOCRIT 28.9 % (32.4-45.2); HEMOGLOBIN 9.4 GM/dL (10.7-15.3); MCH 30.8 pg (25.7-33.7); MCHC 32.5 g/dl (32.0-36.0); MEAN CELL VOLUME 94.7 fl (80-96); MEAN PLT VOLUME 8.3 fl (7.5-11.1); PLATELET COUNT 331 10^3/uL (134-434); RBC 3.06 M/mm3 (3.60-5.2); RDW 13.9 % (11.6-15.6); WHITE BLOOD COUNT 7.2 K/mm3 (4.0-10.0)
[2023-03-09 08:36] LABS: POTASSIUM 4.7 mmol/L (3.5-5.1)
[2023-03-09 08:48] LABS: CALCIUM 8.5 mg/dL (8.5-10.1)
[2023-03-09 08:49] LABS: BLOOD UREA NITROGEN 56.5 mg/dL (7-18); CREATININE 3.4 mg/dL (0.55-1.3)
[2023-03-09 08:51] LABS: PHOSPHOROUS 4.9 mg/dL (2.5-4.9)
[2023-03-09 08:53] LABS: BILIRUBIN,TOTAL 0.3 mg/dL (0.2-1); TOT PROT 6.7 g/dl (6.4-8.2)
[2023-03-09 08:58] LABS: ALBUMIN 2.8 g/dl (3.4-5.0)
[2023-03-09] MEDS: ASPIRIN 81 MG CHEWABLE TABLETS PO SCH (09:50)
[2023-03-09] MEDS: GABAPENTIN 300 MG CAPSULE PO SCH ×2 (09:50→21:52)
[2023-03-09] MEDS: HEPARIN NA (PORCINE) 5,000 UNITS/ML 1ML VIAL SQ SCH ×2 (09:50→21:52)
[2023-03-09] MEDS: FUROSEMIDE 40 MG TABLET (FP) PO SCH (09:50)
[2023-03-09] MEDS: PANTOPRAZOLE 20 MG TABLET PO SCH (09:50)
[2023-03-09] MEDS: POLYETHYLENE GLYCOL (HEALTHYLAX) 3350 17 GM PACKET PO SCH (09:51)
[2023-03-09] MEDS ORDERED: SODIUM ZIRCONIUM CYCLOSILICATE (LOKELMA) 5 GM PACKET PO SCH (12:05)
[2023-03-09] MEDS: SODIUM ZIRCONIUM CYCLOSILICATE (LOKELMA) 5 GM PACKET PO SCH ×2 (12:15→13:05)
[2023-03-09] MEDS: ATORVASTATIN CA 40 MG TABLET (FP) PO SCH (21:52)
[2023-03-09] MEDS: SENNOSIDES 8.8 MG/5 ML SYRUP PO SCH (21:53)
[2023-03-10 06:52] LABS: HEMOGLOBIN 8.1 GM/dL (10.7-15.3); MCH 29.7 pg (25.7-33.7); MCHC 31.4 g/dl (32.0-36.0); MEAN CELL VOLUME 94.6 fl (80-96); MEAN PLT VOLUME 8.3 fl (7.5-11.1); PLATELET COUNT 284 10^3/uL (134-434); RBC 2.75 M/mm3 (3.60-5.2); RDW 13.9 % (11.6-15.6); WHITE BLOOD COUNT 6.9 K/mm3 (4.0-10.0)
[2023-03-10] MEDS: INSULIN SLIDING SCALE (NOVOLOG) 1 VIAL SQ SCH ×3 (07:11→17:01)
[2023-03-10 07:36] LABS: POTASSIUM 4.5 mmol/L (3.5-5.1)
[2023-03-10 07:46] LABS: ALBUMIN 2.4 g/dl (3.4-5.0); BLOOD UREA NITROGEN 64.8 mg/dL (7-18); CREATININE 3.3 mg/dL (0.55-1.3)
[2023-03-10 07:47] LABS: BILIRUBIN,TOTAL 0.4 mg/dL (0.2-1)
[2023-03-10 07:48] LABS: CALCIUM 8.1 mg/dL (8.5-10.1); TOT PROT 5.8 g/dl (6.4-8.2)
[2023-03-10 09:09] VITALS: PULSE 70; RESP 18
[2023-03-10] MEDS: GABAPENTIN 300 MG CAPSULE PO SCH (09:28)
[2023-03-10] MEDS: HEPARIN NA (PORCINE) 5,000 UNITS/ML 1ML VIAL SQ SCH (09:28)
[2023-03-10] MEDS: POLYETHYLENE GLYCOL (HEALTHYLAX) 3350 17 GM PACKET PO SCH (09:28)
[2023-03-10] MEDS: ASPIRIN 81 MG CHEWABLE TABLETS PO SCH (09:28)
[2023-03-10] MEDS: FUROSEMIDE 40 MG TABLET (FP) PO SCH (09:28)
[2023-03-10] MEDS: PANTOPRAZOLE 20 MG TABLET PO SCH (09:28)
[2023-03-10] MEDS: SODIUM ZIRCONIUM CYCLOSILICATE (LOKELMA) 5 GM PACKET PO SCH (11:31)
[2023-03-10 14:54] VITALS: BP 120/58; TEMP 97.8
== END 2023-03-10 17:27 | DRG 65 ==
LOC: JER 20:31 → OBSVTOIN 23:42 → JERBED 23:42 → J4S 02-28 15:37
PROVIDERS: ADMIT Internal Medicine; ATTEND Internal Medicine
DX: I63.9 Cerebral infarction, unspecified (principal); G81.94 Hemiplegia, unspecified affecting left nondominant side; N17.9 Acute kidney failure, unspecified; N39.0 Urinary tract infection, site not specified; N18.4 Chronic kidney disease, stage 4 (severe); I12.9 Hypertensive chronic kidney disease with stage 1 through stage 4 chronic kidney disease, or unspecified chronic kidney disease; E11.22 Type 2 diabetes mellitus with diabetic chronic kidney disease; E11.40 Type 2 diabetes mellitus with diabetic neuropathy, unspecified; J45.909 Unspecified asthma, uncomplicated; E78.5 Hyperlipidemia, unspecified; R80.9 Proteinuria, unspecified; R49.0 Dysphonia; R47.81 Slurred speech; E87.5 Hyperkalemia; D63.1 Anemia in chronic kidney disease; R29.702 NIHSS score 2; E11.42 Type 2 diabetes mellitus with diabetic polyneuropathy; E11.649 Type 2 diabetes mellitus with hypoglycemia without coma; E11.51 Type 2 diabetes mellitus with diabetic peripheral angiopathy without gangrene
CPT/HCPCS: 36415; 70450-TC; 70496-TC; 70498-TC; 70551-TC; 71045-TC-FY; 71046-TC-FY; 74230-TC-FY; 76775-TC; 80048; 80053; 80061; 81003; 82533; 82550; 82570; 82607; 82728; 82746; 82803; 82962; 83036; 83540; 83550; 83615; 83735; 83935; 84100; 84300; 84484; 84540; 85025; 85027; 85045; 85610; 85730; 86850; 86900; 86901; 87086; 87635; 90686; 92611-GN; 93005; 93010; 93306-TC; 93880-TC; 93971-TC; 94640; 97116-GP; 97161-GP; 99285-25; G0008; J1644

== ENCOUNTER 2024-01-31 17:42 | Observation (INO) | payer OTHER, MEDICARE ==
[2024-01-31 17:54] VITALS: BP 181/82; PULSE 72; RESP 16; TEMP 97.6; BMI 27.3
[2024-01-31] MEDS ORDERED: ACETAMINOPHEN INJECTION 100 ML ONE (19:40)
[2024-01-31 19:44] LABS: EOS % 3.5 % (0-4.5); HEMATOCRIT 35.5 % (32.4-45.2); HEMOGLOBIN 11.5 GM/dL (10.7-15.3); LYMPH % 22.5 % (8-40); MCH 30.7 pg (25.7-33.7); MCHC 32.3 g/dl (32.0-36.0); MEAN CELL VOLUME 94.8 fl (80-96); MEAN PLT VOLUME 9.1 fl (7.5-11.1); MONO % 10.9 % (3.8-10.2); NEUT % 62.1 % (42.8-82.8); PLATELET COUNT 257 10^3/uL (134-434); RBC 3.75 M/mm3 (3.60-5.2); RDW 13.3 % (11.6-15.6); WHITE BLOOD COUNT 7.2 K/mm3 (4.0-10.0)
[2024-01-31] MEDS: ACETAMINOPHEN 1000 MG/100 ML BAG IVPB ONE (19:44)
[2024-01-31 19:50] LABS: INR 0.98 (0.83-1.09); PROTHROMBIN TIME (PATIENT) 11.1 SEC (9.7-13.0)
[2024-01-31 19:54] LABS: ACTIVATED PTT 30.4 SECONDS (25.2-36.5)
[2024-01-31 20:05] LABS: POTASSIUM 4.6 mmol/L (3.5-5.1)
[2024-01-31 20:07] LABS: ALBUMIN 3.2 g/dl (3.4-5.0); CALCIUM 8.8 mg/dL (8.5-10.1)
[2024-01-31 20:08] LABS: MAGNESIUM 1.9 mg/dL (1.8-2.4)
[2024-01-31 20:11] LABS: CREATININE 3.2 mg/dL (0.55-1.3)
[2024-01-31 20:13] LABS: BILIRUBIN,TOTAL 0.4 mg/dL (0.2-1); TOT PROT 6.9 g/dl (6.4-8.2)
[2024-01-31 20:49] LABS: EPI CELLS 4 /uL (0-25.1); HYALINE CASTS 0 /uL (0-3.1); PH,URINE 5.5 (5.0-8.0); URINE APPEARANCE CLEAR; URINE BACTERIA 18 /uL (0-1359); URINE BILIRUBIN NEGATIVE (NEGATIVE); URINE COLOR YELLOW; URINE GLUCOSE (UA) 3+ (NEGATIVE); URINE KETONE NEGATIVE (NEGATIVE); URINE LEUK ESTERASE NEGATIVE (NEGATIVE); URINE NITRITE NEGATIVE (NEGATIVE); URINE PROTEIN 2+ (NEGATIVE); URINE RBC 12 /uL (0-23.9); URINE UROBILINOGEN 0.2 mg/dL (0.2-1.0); URINE WBC 5 /uL (0-25.8)
[2024-02-01] MEDS ORDERED: INSULIN ASPART SLIDING SCALE (NOVOLOG) 1 VIAL SQ ONE (01:03)
[2024-02-01] MEDS ORDERED: LIDOCAINE 4% PATCH TP ONE (01:11)
[2024-02-01] MEDS: INSULIN (NOVOLOG) ASPART 100 UNITS/ML 10ML VIAL SQ ONE (01:17)
[2024-02-01] MEDS: LIDOCAINE 4% PATCH TP ONE (01:17)
[2024-02-01] MEDS: INSULIN ASPART SLIDING SCALE (NOVOLOG) 1 VIAL SQ SCH (01:18)
[2024-02-01] MEDS ORDERED: LIDOCAINE PATCH REMOVAL MC ONE (12:30)
== END 2024-02-01 04:15 | disposition home or self-care (01) ==
LOC: JER 17:42 → JERBED 20:32
PROVIDERS: ADMIT Internal Medicine; ATTEND Internal Medicine
DX: M79.604 Pain in right leg (principal); M25.562 Pain in left knee; M25.561 Pain in right knee; W18.39XA Other fall on same level, initial encounter; Y93.89 Activity, other specified; Y92.008 Other place in unspecified non-institutional (private) residence as the place of occurrence of the external cause; I69.992 Facial weakness following unspecified cerebrovascular disease; Z96.653 Presence of artificial knee joint, bilateral; K21.9 Gastro-esophageal reflux disease without esophagitis; E11.40 Type 2 diabetes mellitus with diabetic neuropathy, unspecified; E78.5 Hyperlipidemia, unspecified
CPT/HCPCS: 36415; 70450-TC; 71045-TC-FY; 72125-TC; 72170-TC-FY; 80053; 81003; 82550; 82962; 83735; 84484; 85025; 85610; 85730; 86803; 86850; 86900; 86901; 87086; 93005; 93010; 99285-25; G0378

== ENCOUNTER 2024-12-04 11:46 | Inpatient (IN) | payer OTHER, MEDICARE ==
[2024-12-04 14:23] LABS: ABSOLUTE IMMATURE GRANULOCYTES 0.01 x10^3/uL (0.0-0.031); BASOPHILS # 0.03 x10^3/uL (0.01-0.08); EOSINOPHIL % 6.6 % (0.7-5.8); EOSINOPHILS # 0.33 x10^3/uL (0.04-0.36); MCHC 30.5 g/dl (32.2-35.5); MEAN CELL VOLUME 98.1 fl (79.4-94.8); MEAN PLT VOLUME 10.3 fl (9.4-12.3); MONOCYTE # 0.64 x10^3/uL (0.24-0.86); MONOCYTE % 12.8 % (4.7-12.5); RDW 13.5 % (12.5-17.0)
[2024-12-04 14:41] LABS: CO2 17 mmol/L (21-32); GLUCOSE,RANDOM 180 mg/dL (74-106)
[2024-12-04 14:44] LABS: CREATININE 3.4 mg/dL (0.55-1.3); SGOT/AST 44 U/L (15-37)
[2024-12-04 14:46] LABS: TOT PROT 7.0 g/dl (6.4-8.2)
[2024-12-04 14:47] LABS: ALK PHOS 67 U/L (45-117)
[2024-12-04 14:48] LABS: BG HCT 36.0 % (32.4-45.2); VENOUS BASE EXCESS -6.5 mmol/L (-2-2); VENOUS O2 SATURATION 35.5 % (70-80); VENOUS PCO2 37.1 mmHg (38-52); VENOUS PH 7.325 (7.310-7.410)
[2024-12-04] MEDS: SODIUM CHLORIDE 1,000 ML IV STA (14:49)
[2024-12-04 14:58] LABS: SGPT/ALT 23 U/L (13-61)
[2024-12-04 15:23] LABS: EPI CELLS 9 /uL (0-25.1); HYALINE CASTS 0 /uL (0-3.1); URINE APPEARANCE CLEAR; URINE BACTERIA >9,000 /uL (0-1359); URINE BILIRUBIN NEGATIVE (NEGATIVE); URINE COLOR YELLOW; URINE GLUCOSE (UA) TRACE (NEGATIVE); URINE KETONE NEGATIVE (NEGATIVE); URINE LEUK ESTERASE NEGATIVE (NEGATIVE); URINE NITRITE NEGATIVE (NEGATIVE); URINE PROTEIN 2+ (NEGATIVE); URINE RBC 18 /uL (0-23.9); URINE UROBILINOGEN 0.2 mg/dL (0.2-1.0); URINE WBC 9 /uL (0-25.8)
[2024-12-04] MEDS ORDERED: SODIUM ZIRCONIUM CYCLOSILICATE (LOKELMA) 5 GM PACKET ONE (16:25)
[2024-12-04] MEDS: SODIUM ZIRCONIUM CYCLOSILICATE (LOKELMA) 5 GM PACKET PO ONE (16:33)
[2024-12-04 16:48] LABS: HIV INTERPRETATION NEGATIVE (NEGATIVE)
[2024-12-04 16:49] LABS: HCV DIAGNOSTIC IN-HOUSE W/RFLX NON-REACTIVE (NONREACTIVE)
[2024-12-04] MEDS ORDERED: CEFTRIAXONE 1 GM/50 ML BAG ONE (17:35)
[2024-12-04] MEDS: CEFTRIAXONE 1,000 MG in DEXTROSE 5%-WATER - 50 ML IVPB ONE (17:39)
[2024-12-04] MEDS: ALBUTEROL SO4 2.5/IPRATROPIUM 0.5 INH SOL 3 ML VIAL.NEB. NEB ONE (20:30)
[2024-12-04] MEDS: INSULIN ASPART SLIDING SCALE (NOVOLOG) 1 VIAL SQ SCH (21:53)
[2024-12-04] MEDS: LABETALOL HCL 100 MG TABLET (FP) PO SCH (21:55)
[2024-12-04] MEDS: HEPARIN NA (PORCINE) 5,000 UNITS/ML 1ML VIAL SQ SCH (21:56)
[2024-12-05] MEDS: CALCIUM GLUCONATE IN NACL 1 GM/50 ML BAG IVPB ONE (00:09)
[2024-12-05] MEDS: SODIUM ZIRCONIUM CYCLOSILICATE (LOKELMA) 5 GM PACKET PO ONE (00:09)
[2024-12-05] MEDS: DEXTROSE 50%-WATER 25 GM/50 ML DISP.SYRIN IVPUSH ONE ×2 (00:10→10:26)
[2024-12-05] MEDS: INSULIN REGULAR HUMAN 100 UNITS/ML *VIAL IVPUSH ONE ×2 (00:10→10:28)
[2024-12-05] MEDS ORDERED: DEXTROSE 50%-WATER 25 GM/50 ML DISP.SYRIN IVPUSH PRN ×2 (03:23→08:16)
[2024-12-05 04:56] LABS: GLUCOSE,RANDOM 47 mg/dL (74-106)
[2024-12-05 05:36] LABS: MCHC 31.0 g/dl (32.2-35.5); MEAN CELL VOLUME 99.0 fl (79.4-94.8); MEAN PLT VOLUME 10.3 fl (9.4-12.3); RDW 13.6 % (12.5-17.0)
[2024-12-05] MEDS: DEXTROSE 50%-WATER - 25 GM/50 ML VIAL IVPUSH ONE (06:10)
[2024-12-05 06:34] LABS: CO2 21.0 mmol/L (21-32); GLUCOSE,RANDOM 135.0 mg/dL (74-106)
[2024-12-05 06:37] LABS: CREATININE 3.2 mg/dL (0.55-1.3); SGOT/AST 18.0 U/L (15-37); SGPT/ALT 19.0 U/L (13-61)
[2024-12-05 06:39] LABS: TOT PROT 6.2 g/dl (6.4-8.2)
[2024-12-05 06:40] LABS: ALK PHOS 65.0 U/L (45-117)
[2024-12-05] MEDS ORDERED: ALBUTEROL SO4 0.083% IH SOL 2.5 MG/3 ML VIAL.NEB. NEB ONE (07:54)
[2024-12-05] MEDS: SODIUM ZIRCONIUM CYCLOSILICATE (LOKELMA) 5 GM PACKET PO SCH (10:25)
[2024-12-05] MEDS: CALCIUM GLUCONATE 10% - 1,000 MG/10 ML VIAL IVPUSH ONE (10:26)
[2024-12-05 16:26] LABS: CO2 20.0 mmol/L (21-32); GLUCOSE,RANDOM 139.0 mg/dL (74-106)
[2024-12-05 16:29] LABS: CREATININE 3.3 mg/dL (0.55-1.3)
[2024-12-05] MEDS ORDERED: MELATONIN 5 MG TABLETS PO ONE (22:18)
[2024-12-06 06:58] LABS: MCHC 30.1 g/dl (32.2-35.5); MEAN CELL VOLUME 99.3 fl (79.4-94.8); MEAN PLT VOLUME 11.1 fl (9.4-12.3); RDW 13.9 % (12.5-17.0)
[2024-12-06 07:08] LABS: CO2 20.0 mmol/L (21-32); GLUCOSE,RANDOM 170.0 mg/dL (74-106)
[2024-12-06 07:10] LABS: SGPT/ALT 17.0 U/L (13-61)
[2024-12-06 07:11] LABS: CREATININE 3.2 mg/dL (0.55-1.3); SGOT/AST 13.0 U/L (15-37)
[2024-12-06 07:12] LABS: TOT PROT 5.8 g/dl (6.4-8.2)
[2024-12-06 07:13] LABS: ALK PHOS 61.0 U/L (45-117)
[2024-12-06] MEDS: SEVELAMER CARBONATE 800 MG TAB (FP) PO SCH (11:02)
[2024-12-06 13:51] VITALS: BMI 24.4
[2024-12-06 16:08] VITALS: BP 148/47; PULSE 71; RESP 16; TEMP 98
== END 2024-12-06 16:31 | DRG 641 ==
LOC: JER 11:46 → JERBED 15:46 → J4W 18:48 → OBSVTOIN 12-05 14:32
PROVIDERS: ATTEND Internal Medicine
DX: E87.5 Hyperkalemia (principal); N18.5 Chronic kidney disease, stage 5; E83.39 Other disorders of phosphorus metabolism; I12.9 Hypertensive chronic kidney disease with stage 1 through stage 4 chronic kidney disease, or unspecified chronic kidney disease; E11.22 Type 2 diabetes mellitus with diabetic chronic kidney disease; R82.71 Bacteriuria; R80.9 Proteinuria, unspecified; E87.20 Acidosis, unspecified
CPT/HCPCS: 36415; 70450-TC; 71045-TC-FY; 80048; 80053; 81003; 82803; 82947; 82962; 83735; 84100; 84132; 84484; 85025; 85027; 86803; 86850; 86900; 86901; 87086; 87389; 87637-QW; 93005; 93010; 93306-TC; 97116-GP; 97161-GP; 99285-25; G0378